=== PATIENT | female | born 1950 | race Caucasian/White ===

== ENCOUNTER → 2019-02-22 | Outpatient (CLI) | payer MEDICARE ==
--- NOTE | 2019-02-22 14:00 | Diagnostic Imaging Report ---
MRI SPINE LUMBAR WO HISTORY: Low back pain COMPARISON: None. TECHNIQUE: Sagittal T1, sagittal T2, sagittal STIR, axial T2, coronal T2, and axial proton density weighted images of the lumbar spine were obtained without contrast. DISCUSSION: Number of non-rib bearing lumbar vertebral bodies: 5. Alignment: Normal lordosis. No scoliosis. Vertebrae: Small nodular T1 hyperintense lesion in the L1 vertebral body is a benign hemangioma. Otherwise, no fractures, infection or neoplasm. Conus medullaris: Normal, ends at L1. Cauda equina: No masses or arachnoiditis. Posterior paraspinal muscles: Well preserved. No signal abnormalities. Soft tissues: Large lobular T2 hyperintense lesions in the bilateral renal lakeisha may be due to hydronephrosis and/or parapelvic cysts. Minimal disc degeneration is present. There is mild periarticular edema along the bilateral L3-L4, L4-L5, and L5-S1 facet joints. T12-L1: Patent canal and foramina. L1-L2: Patent canal and foramina. L2-L3: Patent canal and foramina. L3-L4: Patent canal and foramina. L4-L5: Minimal grade 1 anterolisthesis of L4 on L5 is due to facet arthrosis. Mild canal stenosis is due to uncovered disc bulge and ligamentum flavum thickening. Mild bilateral foraminal stenoses is due to uncovered disc bulge and facet arthrosis. L5-S1: Minimal disc bulge without significant canal or foraminal stenosis. IMPRESSION: 1. Minimal disc degeneration. 2. Minimal grade 1 anterolisthesis of L4 on L5 due to L4-L5 facet arthrosis. 3. Possible mild bilateral L3-L4, L4-L5, and L5-S1 facet synovitis. 4. Mild degenerative canal and bilateral foraminal stenoses at L4-L5. 5. Large lobular T2 hyperintense lesions in the bilateral renal lakeisha may be due to hydronephrosis and/or parapelvic cysts. This can be further evaluated with renal protocol CT of the abdomen and pelvis is recommended if clinically feasible. Signed by: Dr. Marcio Obregon M.D. on 02/22/2019 1:56 PM
--- NOTE | 2019-02-22 14:15 | Diagnostic Imaging Report ---
MRI of the pelvis without contrast. History: Low back pain. Pelvic pain. Leg weakness. Arthritis Technique: Multiplanar multisequence MRI of the pelvis without contrast Findings: Please see report from MRI of the lumbar spine from the same day for further details. No acute fracture, subluxation or avascular necrosis about the pelvis. Scattered degenerative changes are seen. The urinary bladder and remainder of the visualized pelvic structures are grossly unremarkable. No free pelvic fluid or pelvic lymphadenopathy is seen. The visualized bowel is grossly unremarkable. Scattered degenerative changes are seen about the hips and pelvis. Moderate soft tissue edema adjacent to the right than left trochanter could be due to trochanteric bursitis. Mild diffuse muscle atrophy. No ligamentous or tendon tear. The visualized neurovascular bundles are intact. Impression: Findings which could be due to right greater than left trochanteric bursitis. Mild diffuse muscle atrophy. Signed by: Dr. Westley Spears M.D. on 02/22/2019 2:12 PM
--- NOTE | 2019-02-22 14:32 | Diagnostic Imaging Report ---
MRI SPINE CERVICAL WO HISTORY: Right arm numbness, neck pain COMPARISON: None. TECHNIQUE: Sagittal T1, sagittal T2, sagittal inversion recovery, axial T2 and axial T1 weighted MR images of the cervical spine were obtained without intravenous contrast. DISCUSSION: Alignment: Straightening of the cervical lordosis. No scoliosis. Vertebrae: A few scattered nodular T1 hyperintense vertebral body lesions are likely benign hemangiomas. Otherwise, no definite evidence for fractures, infection, or neoplasm. Cervicomedullary junction: No abnormalities. Spinal cord: Normal in signal and morphology from the foramen magnum through T3-T4. Soft tissues: The lingual tonsils are prominent. Subcentimeter T2 hyperintense nodule is seen in the left thyroid lobe. Additional findings: T2 hyperintense right mastoid effusion is partially visualized. Mild multilevel disc degeneration is most prominent at C5-C6. C2-C3: Patent canal and foramina. C3-C4: Patent canal and foramina. C4-C5: Patent canal and foramina. C5-C6: Mild canal stenosis due to posterior disc osteophyte complex and ligamentum flavum thickening. Moderate right and mild left foraminal stenoses due to uncovertebral and facet arthrosis. C6-C7: Mild canal stenosis due to posterior disc osteophyte complex and ligamentum flavum thickening. Mild right foraminal stenosis due to uncovertebral and facet arthrosis. No significant left foraminal stenosis. C7-T1: Patent canal and foramina. IMPRESSION: 1. Mild multilevel disc degeneration, most prominent at C5-C6. 2. Multilevel degenerative foraminal stenoses - moderate right and mild left at C5-C6; mild on the right at C6-C7. 3. Mild degenerative canal stenoses at C5-C6 and C6-C7. Signed by: Dr. Marcio Obregon M.D. on 02/22/2019 2:29 PM
== END ==
LOC: MRI 09:40
PROVIDERS: ATTEND Internal Medicine
DX: M54.2 Cervicalgia (principal); M54.5 Low back pain
CPT/HCPCS: 72141; 72148; 72195